=== PATIENT | female | born 1995 | race African-American/Black ===

== ENCOUNTER 2017-01-02 14:36 | Emergency (ER) | payer SELFPAY ==
[~2017-01-02] VITALS: Ht 172.7 cm; Wt 88.5 kg
[~2017-01-02 14:36] MED LIST: CIPROFLOXACIN500 M2 ORAL; CIPROFLOXACIN750 MG ORAL; IBUPROFEN600 MG ORAL; NKM; OMEPRAZOLE20 M3 ORAL; PHENERGAN25 M1 ORAL; RANITIDINE HCL150 MG ORAL; REGLAN10 M1 ORAL; ZANTAC150 MG ORAL; ZOFRAN ODT4 MG ORAL; ZOFRAN4 MG ORAL
[2017-01-02 14:39] VITALS: BP 132/85
--- NOTE | 2017-01-02 14:55 | Emergency Room Report ---
History of Present Illness General Chief Complaint: Flu Like Symptoms Source: Patient Present Illness HPI 21-year-old female presents to the emergency department complaining of 3 day history of viral symptoms consisting of body-aches, chills, generalized fatigue and cough. Patient denies fevers. She reports abrupt onset of vomiting with generalized abdominal upper abdominal pain 10/10 in severity since yesterday. Patient states she is unable to tolerate oral fluids. Patient denies blood in the vomit or stool. Patient denies constipation, diarrhea or black tarry stools. She denies recent travel or ill contacts. Denies . She denies neck pain/stiffness, recent head injury or trauma. Denies CP, Palpitations, LOC, AMS, dizziness, Changes in Vision, Sensation, paresthesias, or a sudden severe headache. Allergies: Coded Allergies: CORN (Verified Allergy, Unknown, 08/22/15) RICE (Verified Allergy, Unknown, 08/22/15) Wheat (Verified Allergy, Unknown, 08/22/15) Whole Milk (Verified Allergy, Unknown, 08/22/15) Patient History Past Medical History: see triage record Past Surgical History: none Pertinent Family History: none Last Menstrual Period: 12/15/16 Immunizations: UTD Reviewed Nursing Documentation: PMH: Agreed, PSxH: Agreed Nursing Documentation-PMH Past Medical History: No Stated History Hx Gastrointestinal Problems: Yes - gastritis Review of Systems All Other Systems: negative except mentioned in HPI Physical Exam Vital Signs Date Time Temp Pulse Resp B/P (MAP) Pulse Ox O2 Delivery O2 Flow Rate FiO2 01/02/17 14:39 98.2 78 18 132/85 98 Room Air Sp02 EP Interpretation: reviewed, normal General Appearance: alert, GCS 15, non-toxic, mild distress - vomiting Head: normocephalic, atraumatic ENT: hearing grossly normal, normal voice Neck: full range of motion Respiratory: chest non-tender, lungs clear, normal breath sounds, no respiratory distress, speaking full sentences Cardiovascular #1: regular rate, rhythm Gastrointestinal: normal bowel sounds, soft, no guarding, no rebound, tenderness - generalized epigastric ttp, no RLQ TTP. Rectal: deferred Genitourinary: normal inspection, no CVA tenderness Musculoskeletal: back normal, gait/station normal, normal range of motion, non- tender Neurologic: alert, oriented x3, responsive, motor strength/tone normal, sensory intact, speech normal Skin: normal color, no rash, warm/dry, well hydrated Lymphatic: no adenopathy Medical Decision Making PA Attestation Dr. Godoy is my supervising Physician whom patient management has been discussed with. Diagnostic Impression: Primary Impression: Cyclical vomiting syndrome Qualified Codes: G43.A1 - Cyclical vomiting, intractable Additional Impressions: Marijuana use Viral syndrome ER Course 21-year-old female presents to the emergency department complaining of 3 day history of viral symptoms consisting of body-aches, chills, generalized fatigue and cough. Patient denies fevers. She reports abrupt onset of vomiting with generalized abdominal upper abdominal pain 10/10 in severity since yesterday. Patient states she is unable to tolerate oral fluids. Patient denies blood in the vomit or stool. Patient denies constipation, diarrhea or black tarry stools. She denies recent travel or ill contacts. Denies . She denies neck pain/stiffness, recent head injury or trauma. Denies CP, Palpitations, LOC, AMS, dizziness, Changes in Vision, Sensation, paresthesias, or a sudden severe headache. Ddx considered but are not limited to GE, colitis, acute appy, SBO, Cyclical Vomiting secondary to THC, * Vital signs: pt. is afebrile, H&PE are most consistent with Cyclical vomiting induced by THC use. and viral syndrome. After antiemetic medications given in the emergency department had little relief of symptoms I question patient about marijuana use and she reports that yesterday she used some marijuana thinking it would make her feel better from her previous viral URI symptoms and she states that she began having vomiting shortly after. ORDERS: -CBC: WNL/unremarkable -CMp: WNL/ Unremarkable -Lipase: WNL -Urine Hcg: Negative -UDS; Positive for THC ED INTERVENTIONS: -1000 NS iv hydration x 2 -Zofran PO -Reglan IV - Capsacin Cream topically -Zantac PO -She was educated on THC into cyclical vomiting syndrome and was encouraged to discontinue use of marijuana. Encourage patient to continue hydration with oral fluids well at home and gave patient ED return precautions for worsening or new symptoms.. For patient to followup with her PMD in approximately 3-5 days. DISCHARGE: At this time pt. is stable for d/c to home. Will provide printed patient care instructions, and any necessary prescriptions. Care plan and follow up instructions have been discussed with the patient prior to discharge. Labs Test 01/02/17 15:20 01/02/17 17:17 White Blood Count 7.4 K/UL (4.8-10.8) Red Blood Count 4.44 M/UL (4.20-5.40) Hemoglobin 14.5 G/DL (12.0-16.0) Hematocrit 42.8 % (37.0-47.0) Mean Corpuscular Volume 96 FL (80-99) Mean Corpuscular Hemoglobin 32.8 PG (27.0-31.0) Mean Corpuscular Hemoglobin Concent 34.0 G/DL (32.0-36.0) Red Cell Distribution Width 10.7 % (11.6-14.8) Platelet Count 173 K/UL (150-450) Mean Platelet Volume 7.0 FL (6.5-10.1) Neutrophils (%) (Auto) 70.8 % (45.0-75.0) Lymphocytes (%) (Auto) 9.5 % (20.0-45.0) Monocytes (%) (Auto) 17.8 % (1.0-10.0) Eosinophils (%) (Auto) 0.0 % (0.0-3.0) Basophils (%) (Auto) 1.8 % (0.0-2.0) Sodium Level 139 MMOL/L (136-145) Potassium Level 3.5 MMOL/L (3.5-5.1) Chloride Level 102 MMOL/L (98-107) Carbon Dioxide Level 22 MMOL/L (21-32) Anion Gap 15 mmol/L (5-15) Blood Urea Nitrogen 9 mg/dL (7-18) Creatinine 0.8 MG/DL (0.55-1.30) Estimat Glomerular Filtration Rate > 60 mL/min (>60) Glucose Level 125 MG/DL (74-106) Calcium Level 9.4 MG/DL (8.5-10.1) Total Bilirubin 0.5 MG/DL (0.2-1.0) Aspartate Amino Transf (AST/SGOT) 24 U/L (15-37) Alanine Aminotransferase (ALT/SGPT) 31 U/L (12-78) Alkaline Phosphatase 57 U/L (46-116) Total Protein 7.9 G/DL (6.4-8.2) Albumin 4.6 G/DL (3.4-5.0) Globulin 3.3 g/dL Albumin/Globulin Ratio 1.4 (1.0-2.7) Lipase 58 U/L (73-393) Urine HCG, Qualitative Negative Urine Opiates Screen Negative (NEGATIVE) Urine Barbiturates Screen Negative (NEGATIVE) Phencyclidine (PCP) Screen Negative (NEGATIVE) Urine Amphetamines Screen Negative (NEGATIVE) Urine Benzodiazepines Screen Negative (NEGATIVE) Urine Cocaine Screen Negative (NEGATIVE) Urine Marijuana (THC) Screen Positive (NEGATIVE) Last Vital Signs Date Time Temp Pulse Resp B/P (MAP) Pulse Ox O2 Delivery O2 Flow Rate FiO2 01/02/17 14:39 98.2 78 18 132/85 98 Room Air Disposition: HOME, SELF-CARE Condition: Stable Scripts Ranitidine Hcl* (ZANTAC*) 150 Mg Tablet 150 MG ORAL TWICE A DAY for 7 Days, #14 TAB Prov: Madonna Chambers 01/02/17 Acetaminophen* (TYLENOL EXTRA STRENGTH*) 500 Mg Tablet 500 MG ORAL Q8H Y for Prn Headache/Temp > 101, #20 TAB 0 Refills Prov: Madonna Chambers 01/02/17 Capsaicin (CAPSAICIN) 60 Gm Cream..g. 1 APPLIC TP PRN Y for Nausea & Vomiting, #60 GM Prov: Madonna Chambers 01/02/17 Patient Instructions: Nausea and Vomiting, Adult, [id number] Additional Instructions: Discontinue the use of marijuana as this is known to cause cyclical vomiting syndrome. Take medications as directed. Follow up with a Primary Care Provider in 3-5 days, even if your symptoms have resolved. --Please review list of primary care clinics, if you do not already have a primary care provider Return sooner to ED if new symptoms occur, or current symptoms become worse. - Please note that this Emergency Department Report was dictated using [employer] technology software, occasionally this can lead to erroneous entry secondary to interpretation by the dictation equipment. Madonna Chambers Jan 02, 2017 14:55
[2017-01-02] MEDS ORDERED: Ondansetron ODT 8mg tab ORAL ONE (15:00)
[2017-01-02 15:36] LABS: BASOPHILS % (AUTO) 1.8 % (0.0-2.0); LYMPHOCYTES % (AUTO) 9.5 % (20.0-45.0); MEAN CORPUSCULAR HEMOGLOBIN 32.8 PG (27.0-31.0); MEAN CORPUSCULAR VOLUME 96 FL (80-99); MONOCYTES % (AUTO) 17.8 % (1.0-10.0); NEUTROPHILS % (AUTO) 70.8 % (45.0-75.0); PLATELET COUNT 173 K/UL (150-450); RED BLOOD COUNT 4.44 M/UL (4.20-5.40); RED CELL DISTRIBUTION WIDTH 10.7 % (11.6-14.8); WHITE BLOOD COUNT 7.4 K/UL (4.8-10.8)
[2017-01-02 15:42] LABS: ANION GAP 15 mmol/L (5-15); CALCIUM 9.4 MG/DL (8.5-10.1); CARBON DIOXIDE 22 MMOL/L (21-32); CHLORIDE 102 MMOL/L (98-107); CREATININE 0.8 MG/DL (0.55-1.30); GLOMERULAR FILTRATION RATE > 60 mL/min (>60); POTASSIUM 3.5 MMOL/L (3.5-5.1); SODIUM 139 MMOL/L (136-145)
[2017-01-02 15:48] LABS: ALANINE AMINOTRANSFERASE 31 U/L (12-78); ALBUMIN/GLOBULIN RATIO 1.4 (1.0-2.7); ASPARTATE AMINO TRANSFERASE 24 U/L (15-37); LIPASE 58 U/L (73-393); TOTAL PROTEIN 7.9 G/DL (6.4-8.2)
[2017-01-02] MEDS ORDERED: Ketorolac 30mg Inj IV ONE (16:15)
[2017-01-02] MEDS ORDERED: Metoclopramide 10mg/2ml Inj IVP ONE (16:30)
[2017-01-02] MEDS ORDERED: ZANTAC150 MG ORAL (17:52)
[2017-01-02] MEDS ORDERED: CAPSAICIN60 GM TP (17:52)
[2017-01-02] MEDS ORDERED: TYLENOL EXTRA500 MG ORAL (17:52)
[2017-01-02] MEDS ORDERED: Capsaicin 0.075% Cream TOPIC SCH (18:15)
[2017-01-02 18:18] VITALS: BP 132/85
[2017-01-03] MEDS ORDERED: NITROFURANTOIN100 M2 ORAL (21:18)
[2017-01-03] MEDS ORDERED: ZOFRAN ODT4 MG ORAL (21:28)
== END 2017-01-02 18:39 | disposition home or self-care (01) ==
LOC: EMR 14:50
DX: G43.A0 Cyclical vomiting, in migraine, not intractable (principal); F12.90 Cannabis use, unspecified, uncomplicated; B34.9 Viral infection, unspecified; Z91.018 Allergy to other foods; Z87.19 Personal history of other diseases of the digestive system
CPT/HCPCS: 36415; 80053; 80307; 81025; 83690; 85025; 96361; 96374; 96375; 99284; J1885; J2765; Q0162

== ENCOUNTER 2017-01-03 19:58 | Emergency (ER) | payer SELFPAY ==
[~2017-01-03] VITALS: Ht 175.3 cm; Wt 81.6 kg
[~2017-01-03 19:58] MED LIST changes: +CAPSAICIN60 GM TP; +TYLENOL EXTRA500 MG ORAL
--- NOTE | 2017-01-03 20:08 | Emergency Room Report ---
History of Present Illness General Chief Complaint: To Be Triaged Present Illness HPI 21-year-old female walking with continued intractable nausea and vomiting associated with abdominal pain, 09/24, patient stated that she could fill prescriptions given by PA yesterday, but nothing has helped Patient was seen here yesterday, had normal labs, and urine toxicology was positive for marijuana Patient admits to twice daily marijuana use, has multiple visits to ER for intractable pain and nausea vomiting patient denies urinary complaints, diarrhea, foreign travel, sick contacts, previous abdominal surgery Allergies: Coded Allergies: CORN (Verified Allergy, Unknown, 08/22/15) RICE (Verified Allergy, Unknown, 08/22/15) Wheat (Verified Allergy, Unknown, 08/22/15) Whole Milk (Verified Allergy, Unknown, 08/22/15) Patient History Past Medical History: none Past Surgical History: none Pertinent Family History: none Social History: Reports: smoking, drug use Now: No Immunizations: UTD Reviewed Nursing Documentation: PMH: Agreed, PSxH: Agreed Nursing Documentation-PMH Hx Gastrointestinal Problems: Yes - gastritis Review of Systems All Other Systems: negative except mentioned in HPI Physical Exam Sp02 EP Interpretation: reviewed, normal General Appearance: normal inspection, well appearing, no apparent distress, alert, GCS 15, non-toxic, other - patient dry heaving but not actually vomiting Head: normocephalic, atraumatic Eyes: bilateral eye PERRL, bilateral eye EOMI ENT: normal ENT inspection, hearing grossly normal, normal voice Neck: normal inspection, full range of motion, supple, no bony tend Respiratory: normal inspection, lungs clear, normal breath sounds, no respiratory distress, no retraction, no wheezing Cardiovascular #1: regular rate, rhythm, no edema Gastrointestinal: normal inspection, normal bowel sounds, non tender, soft, no guarding, no hernia Genitourinary: no CVA tenderness Musculoskeletal: normal inspection, back normal, normal range of motion, Marivel' s Sign negative Neurologic: normal inspection, alert, oriented x3, responsive, 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, motor strength/tone normal, speech normal Psychiatric: normal inspection, judgement/insight normal, other - Very traumatic affect, writhing on stretcher Skin: normal inspection, normal color, no rash Lymphatic: normal inspection Medical Decision Making Diagnostic Impression: Primary Impression: Intractable vomiting Qualified Codes: G43.A1 - Cyclical vomiting, intractable Additional Impressions: Marijuana abuse UTI (lower urinary tract infection) ER Course ntractable vomiting likely due to continued marijuana abuse Vital signs stable, afebrile UA significant for UTI, antibiotic prescription was given Patient is to be discharged to home. Prescriptions given are macrobid Patient is instructed to follow up with their primary care doctor within 5 days. Patient is instructed to follow up with *specialist within 3 days. Strict return precautions discussed with patient such as fever, chills, worsening/severe pain, nausea, vomiting, which may indicate severe illness. Patient verbalizes understanding and agrees with plan. Please note that this Emergency Department Report was dictated using [employer] technology software, occasionally this can lead to erroneous entry secondary to interpretation by the dictation equipment Status: improved Disposition: HOME, SELF-CARE Scripts Ondansetron Odt* (ZOFRAN ODT*) 4 Mg Tab.rapdis 4 MG ORAL Q6H Y for Nausea & Vomiting, #15 TAB 0 Refills Prov: RONEL CRAWFORD D.O. 01/03/17 Nitrofurantoin Monohyd/M-Cryst* (MACROBID 100 MG*) 100 Mg Capsule 100 MG ORAL EVERY 12 HOURS for 7 Days, #13 CAP Prov: ALBINO CAVANAUGH M.D. 01/03/17 ALBINO CAVANAUGH M.D. Jan 03, 2017 20:08
[2017-01-03 20:26] VITALS: BP 176/84
[2017-01-03 20:27] LABS: APPEARANCE,URINE CLOUDY; KETONES,URINE 3+ (NEGATIVE); LEUKOCYTE ESTERASE ,URINE 2+ (NEGATIVE); NITRITE,URINE NEGATIVE (NEGATIVE); PH,URINE 5 (4.5-8.0); PROTEIN,URINE 2+ (NEGATIVE); UROBILINOGEN,URINE NORMAL MG/DL (0.0-1.0)
[2017-01-03 20:36] LABS: BACTERIA,URINE MANY /HPF; SQUAMOUS EPITHELIAL CELL,UR MANY /LPF (NONE/OCC); WBC,URINE 30-40 /HPF (0 - 2)
[2017-01-03] MEDS ORDERED: NITROFURANTOIN100 M2 ORAL (21:18)
[2017-01-03] MEDS ORDERED: ZOFRAN ODT4 MG ORAL (21:28)
[2017-01-03 21:30] VITALS: BP 164/71
[2017-01-03 21:33] VITALS: BP 164/71
== END 2017-01-03 21:33 | disposition home or self-care (01) ==
LOC: EMR 20:20
DX: R11.2 Nausea with vomiting, unspecified (principal); F12.10 Cannabis abuse, uncomplicated; F17.200 Nicotine dependence, unspecified, uncomplicated; Z87.19 Personal history of other diseases of the digestive system
CPT/HCPCS: 81003; 87086; 96372; 99284; J2405

== ENCOUNTER 2017-01-05 11:08 | Emergency (ER) | payer OTHER ==
[~2017-01-05] VITALS: Ht 175.3 cm; Wt 81.6 kg
[~2017-01-05 11:08] MED LIST changes: +NITROFURANTOIN100 M2 ORAL
[2017-01-05] MEDS ORDERED: Haloperidol 5mg/ml Inj IM ONE (11:45)
[2017-01-05 11:56] LABS: APPEARANCE,URINE SLIGHTLY CLOUDY; KETONES,URINE 2+ (NEGATIVE); LEUKOCYTE ESTERASE ,URINE 3+ (NEGATIVE); NITRITE,URINE POSITIVE (NEGATIVE); PH,URINE 6 (4.5-8.0); PROTEIN,URINE 3+ (NEGATIVE); UROBILINOGEN,URINE 4 MG/DL (0.0-1.0)
[2017-01-05 12:01] LABS: MEAN CORPUSCULAR HEMOGLOBIN 31.9 PG (27.0-31.0); MEAN CORPUSCULAR HGB CONC 33.9 G/DL (32.0-36.0); MEAN CORPUSCULAR VOLUME 94 FL (80-99); MEAN PLATELET VOLUME 7.2 FL (6.5-10.1); PLATELET COUNT 177 K/UL (150-450); RED CELL DISTRIBUTION WIDTH 10.5 % (11.6-14.8); WHITE BLOOD COUNT 4.7 K/UL (4.8-10.8)
[2017-01-05 12:10] LABS: ANION GAP 13 mmol/L (5-15); CALCIUM 9.5 MG/DL (8.5-10.1); CARBON DIOXIDE 27 MMOL/L (21-32); CHLORIDE 102 MMOL/L (98-107); CREATININE 0.9 MG/DL (0.55-1.30); GLOMERULAR FILTRATION RATE > 60 mL/min (>60); POTASSIUM 3.1 MMOL/L (3.5-5.1); SODIUM 141 MMOL/L (136-145)
[2017-01-05 12:12] LABS: ALANINE AMINOTRANSFERASE 44 U/L (12-78); ALBUMIN/GLOBULIN RATIO 1.2 (1.0-2.7); ASPARTATE AMINO TRANSFERASE 33 U/L (15-37); LIPASE 79 U/L (73-393); TOTAL PROTEIN 8.4 G/DL (6.4-8.2)
[2017-01-05 12:13] LABS: PROTHROMBIN TIME 10.8 SEC (9.30-11.50)
[2017-01-05 12:14] LABS: ICTOTEST NEGATIVE
[2017-01-05 12:15] LABS: BACTERIA,URINE MODERATE /HPF; MUCUS,URINE FEW /LPF (NONE/OCC); SQUAMOUS EPITHELIAL CELL,UR MODERATE /LPF (NONE/OCC)
[2017-01-05 12:26] LABS: BAND NEUTROPHILS % (MANUAL) 0 % (0-8); BASOPHILS % (MANUAL) 0 % (0-2); EOSINOPHILS % (MANUAL) 0 % (0-3); LYMPHOCYTES % (MANUAL) 36 % (20-45); NEUTROPHILS % (MANUAL) 45 % (45-75); PLATELET ESTIMATE ADEQUATE; TOTAL CELLS COUNTED 100
[2017-01-05 12:27] LABS: PLATELET MORPHOLOGY NORMAL
[2017-01-05] MEDS ORDERED: cefTRIAXone 1 GM in NS 55 ML IVPB ONE (12:30)
[2017-01-05 13:54] VITALS: BP 105/63
[2017-01-05] MEDS ORDERED: KEFLEX500 MG ORAL (13:54)
[2017-01-05] MEDS ORDERED: ZOFRAN4 MG ORAL (13:54)
[2017-01-05 14:08] VITALS: BP 105/63
--- NOTE | 2017-01-07 08:38 | Emergency Room Report ---
History of Present Illness General Chief Complaint: Vomiting Source: Patient Present Illness HPI Patient is a 21-year-old female who presented after increased epigastric pain as well as vomiting. Patient gradual onset of symptoms. Patient multiple prior visits for similar type symptoms. Patient prior history of marijuana- induced hyperemesis. She said prior history of gastritis. The patient stated that she had been vomiting multiple times. She has some blood-streaked emesis. She reports having some epigastric burning sensation. She denies any fever. She denies any dysuria.She denies being Allergies: Coded Allergies: CORN (Verified Allergy, Unknown, 08/22/15) RICE (Verified Allergy, Unknown, 08/22/15) Wheat (Verified Allergy, Unknown, 08/22/15) Whole Milk (Verified Allergy, Unknown, 08/22/15) Patient History Past Medical History: see triage record Last Menstrual Period: 11/2016 Now: No : 0 Para: 0 Reviewed Nursing Documentation: PMH: Agreed, PSxH: Agreed Nursing Documentation-PMH Past Medical History: No History, Except For Hx Gastrointestinal Problems: Yes - gastritis Review of Systems All Other Systems: negative except mentioned in HPI Physical Exam Vital Signs Date Time Temp Pulse Resp B/P (MAP) Pulse Ox O2 Delivery O2 Flow Rate FiO2 01/05/17 11:13 97.9 50 16 146/92 99 Room Air Sp02 EP Interpretation: reviewed, normal General Appearance: normal inspection, well appearing, no apparent distress, alert, GCS 15 Head: atraumatic ENT: normal ENT inspection, hearing grossly normal, normal voice Neck: normal inspection, full range of motion, supple, no bony tend Respiratory: normal inspection, lungs clear, normal breath sounds, no respiratory distress, no retraction, no wheezing Cardiovascular #1: regular rate, rhythm, no edema Gastrointestinal: normal inspection, normal bowel sounds, non tender, soft, no guarding, no hernia Genitourinary: no CVA tenderness Musculoskeletal: normal inspection, back normal, normal range of motion Neurologic: normal inspection, alert, oriented x3, responsive, 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 Gastritis ER Course Patient presented for abdominal pain. Differential diagnoses included ischemic bowel, appendicitis, perforated viscus, abdominal aortic aneurysm, inferior myocardial infarction, viral gastroenteritis Because of complexity of patient's case laboratory testing and imaging studies were ordered. Laboratory studies showed normal hemoglobin. The patient was given IV fluids as well as IM Haldol for nausea. The patient was given IV antibiotics to urinary infection. The patient's symptoms are more consistent with gastritis as well as hyperemesis syndrome . Patient given prescriptions for oral antibiotics and Zofran. The patient was advised to discontinue smoking marijuana . The patient is advised to follow up with primary care doctor in 1- 2 days. Patient is advised to return if any worsening condition or if any changes in status that are concerning. Labs Test 01/05/17 11:32 01/05/17 11:40 Urine Color Yellow Urine Appearance Slightly cloudy Urine pH 6 (4.5-8.0) Urine Specific [place] 1.020 (1.005-1.035) Urine Protein 3+ (NEGATIVE) Urine Glucose (UA) Negative (NEGATIVE) Urine Ketones 2+ (NEGATIVE) Urine Occult Blood 3+ (NEGATIVE) Urine Nitrite Positive (NEGATIVE) Urine Bilirubin 1+ (NEGATIVE) Urine Ictotest Negative Urine Urobilinogen 4 MG/DL (0.0-1.0) Urine Leukocyte Esterase 3+ (NEGATIVE) Urine RBC 2-4 /HPF (0 - 2) Urine WBC 10-15 /HPF (0 - 2) Urine Squamous Epithelial Cells Moderate /LPF (NONE/OCC) Urine Bacteria Moderate /HPF (NONE) Urine Mucus Few /LPF (NONE/OCC) Urine HCG, Qualitative Negative White Blood Count 4.7 K/UL (4.8-10.8) Red Blood Count 4.50 M/UL (4.20-5.40) Hemoglobin 14.4 G/DL (12.0-16.0) Hematocrit 42.4 % (37.0-47.0) Mean Corpuscular Volume 94 FL (80-99) Mean Corpuscular Hemoglobin 31.9 PG (27.0-31.0) Mean Corpuscular Hemoglobin Concent 33.9 G/DL (32.0-36.0) Red Cell Distribution Width 10.5 % (11.6-14.8) Platelet Count 177 K/UL (150-450) Mean Platelet Volume 7.2 FL (6.5-10.1) Neutrophils (%) (Auto) % (45.0-75.0) Lymphocytes (%) (Auto) % (20.0-45.0) Monocytes (%) (Auto) % (1.0-10.0) Eosinophils (%) (Auto) % (0.0-3.0) Basophils (%) (Auto) % (0.0-2.0) Differential Total Cells Counted 100 Neutrophils % (Manual) 45 % (45-75) Lymphocytes % (Manual) 36 % (20-45) Monocytes % (Manual) 19 % (1-10) Eosinophils % (Manual) 0 % (0-3) Basophils % (Manual) 0 % (0-2) Band Neutrophils 0 % (0-8) Platelet Estimate Adequate Platelet Morphology Normal Red Blood Cell Morphology Normal Prothrombin Time 10.8 SEC (9.30-11.50) Prothromb Time International Ratio 1.0 (0.9-1.1) Activated Partial Thromboplast Time 28 SEC (23-33) Sodium Level 141 MMOL/L (136-145) Potassium Level 3.1 MMOL/L (3.5-5.1) Chloride Level 102 MMOL/L (98-107) Carbon Dioxide Level 27 MMOL/L (21-32) Anion Gap 13 mmol/L (5-15) Blood Urea Nitrogen 8 mg/dL (7-18) Creatinine 0.9 MG/DL (0.55-1.30) Estimat Glomerular Filtration Rate > 60 mL/min (>60) Glucose Level 101 MG/DL (74-106) Calcium Level 9.5 MG/DL (8.5-10.1) Total Bilirubin 0.8 MG/DL (0.2-1.0) Aspartate Amino Transf (AST/SGOT) 33 U/L (15-37) Alanine Aminotransferase (ALT/SGPT) 44 U/L (12-78) Alkaline Phosphatase 52 U/L (46-116) Total Protein 8.4 G/DL (6.4-8.2) Albumin 4.5 G/DL (3.4-5.0) Globulin 3.9 g/dL Albumin/Globulin Ratio 1.2 (1.0-2.7) Lipase 79 U/L (73-393) Last Vital Signs Date Time Temp Pulse Resp B/P (MAP) Pulse Ox O2 Delivery O2 Flow Rate FiO2 01/05/17 14:08 98.1 61 18 105/63 97 Room Air Status: improved Disposition: HOME, SELF-CARE Condition: Stable Scripts Cephalexin* (KEFLEX*) 500 Mg Capsule 500 MG ORAL EVERY 6 HOURS, #28 CAP 0 Refills Prov: Magdaleno Lam 01/05/17 Ondansetron (Zofran) 4 Mg Tablet 4 MG ORAL Q6H Y for Nausea & Vomiting, #20 TAB 0 Refills Prov: Magdaleno Lam 01/05/17 Patient Instructions: Nausea and Vomiting, Adult Additional Instructions: Stop smoking marijuana. This makes you vomit. Magdaleno Lam Jan 07, 2017 08:38
--- NOTE | 2017-01-13 17:25 | Cardiology Report ---
APPROVED REPORT EKG Measurement Heart [id number] Sinus bradycardia Otherwise normal ECG
== END 2017-01-05 14:11 | disposition home or self-care (01) ==
LOC: EMR 11:50
DX: N39.0 Urinary tract infection, site not specified (principal); K29.70 Gastritis, unspecified, without bleeding; R11.10 Vomiting, unspecified; F12.10 Cannabis abuse, uncomplicated
CPT/HCPCS: 36415; 80053; 81003; 81025; 83690; 85007; 85025; 85610; 85730; 87086; 93005; 96361; 96365; 96372; 99284; J0696; J1630; J8499

== ENCOUNTER 2018-02-21 16:02 | Emergency (ER) | payer MEDICAID, OTHER ==
[~2018-02-21] VITALS: Ht 177.8 cm; Wt 90.7 kg
[~2018-02-21 16:02] MED LIST changes: +KEFLEX500 MG ORAL
--- NOTE | 2018-02-21 16:41 | NUR ---
ED Nurse Note: Pt came into the Er for nausea and vomiting x5 days. Started diarrhea today. A + O x4. Ambulatory. Complaining of 9/10 abdominal pain radiating to the sternum. Skin warm to touch.
[2018-02-21 16:47] VITALS: BP 143/93
--- NOTE | 2018-02-21 16:59 | Emergency Room Report ---
History of Present Illness General Chief Complaint: Nausea, Vomiting, and Diarrhea Source: Patient, Medical Record Present Illness HPI Patient is a 22-year-old female who presented after increased abdominal pain. Patient had prior history of marijuana hyperemesis syndrome. Patient reports to continued marijuana use. She states she stopped several days ago after emesis began. Patient has multiple ER visits for similar symptoms in the past. Patient denies any dysuria. She reports having taken her previously prescribed medications without any improvement. Patient had not use capsaicin. She had previously been prescribed this. Patient had no prior surgical history. She denies any fever. She denies any leg pain or swelling or dysuria.Patient denies being Allergies: Coded Allergies: CORN (Verified Allergy, Unknown, 08/22/15) RICE (Verified Allergy, Unknown, 08/22/15) Wheat (Verified Allergy, Unknown, 08/22/15) Whole Milk (Verified Allergy, Unknown, 08/22/15) Patient History Past Medical History: see triage record Now: No Reviewed Nursing Documentation: PMH: Agreed; PSxH: Agreed Nursing Documentation-PMH Hx Gastrointestinal Problems: Yes - gastritis Review of Systems All Other Systems: negative except mentioned in HPI Physical Exam Vital Signs Date Time Temp Pulse Resp B/P (MAP) Pulse Ox O2 Delivery O2 Flow Rate FiO2 02/21/18 16:36 79 20 151/100 98 Room Air 02/21/18 16:47 100.5 Sp02 EP Interpretation: reviewed, normal General Appearance: normal inspection, well appearing, no apparent distress, alert, GCS 15, non-toxic Head: atraumatic ENT: normal ENT inspection, hearing grossly normal, normal voice Neck: normal inspection, full range of motion, supple, no bony tend Respiratory: normal inspection, lungs clear, normal breath sounds, no respiratory distress, no retraction, no wheezing Cardiovascular #1: regular rate, rhythm, no edema Gastrointestinal: normal inspection, normal bowel sounds, non tender, soft, no guarding, no hernia Genitourinary: no CVA tenderness Musculoskeletal: normal inspection, back normal, normal range of motion Neurologic: normal inspection, alert, oriented x3, responsive, speech normal Psychiatric: normal inspection, judgement/insight normal, mood/affect normal Skin: normal inspection, normal color, no rash Medical Decision Making Diagnostic Impression: Primary Impression: UTI (lower urinary tract infection) Additional Impressions: Abdominal pain Cannabis hyperemesis syndrome concurrent with and due to cannabis abuse ER Course Patient presented for abdominal pain. Differential diagnoses included ischemic bowel, appendicitis, perforated viscus, abdominal aortic aneurysm, inferior myocardial infarction, viral gastroenteritis. because of complexity of patient' s case laboratory testing and imaging studies were ordered. Patient appears to have evidence of chronic marijuana abuse and vomiting is likely related to this. Patient was noted to have some evidence of urinary tract infection. She was given prescription for oral antibiotics. Patient does not appear to be septic.Patient was again advised marijuana cessation. She was advised to return if she was unable to keep fluids down or other concerns.. Labs Test 02/21/18 17:10 02/21/18 18:52 White Blood Count 10.5 K/UL (4.8-10.8) Red Blood Count 4.90 M/UL (4.20-5.40) Hemoglobin 16.0 G/DL (12.0-16.0) Hematocrit 44.7 % (37.0-47.0) Mean Corpuscular Volume 91 FL (80-99) Mean Corpuscular Hemoglobin 32.6 PG (27.0-31.0) Mean Corpuscular Hemoglobin Concent 35.8 G/DL (32.0-36.0) Red Cell Distribution Width 10.4 % (11.6-14.8) Platelet Count 299 K/UL (150-450) Mean Platelet Volume 6.5 FL (6.5-10.1) Neutrophils (%) (Auto) 67.2 % (45.0-75.0) Lymphocytes (%) (Auto) 17.8 % (20.0-45.0) Monocytes (%) (Auto) 14.0 % (1.0-10.0) Eosinophils (%) (Auto) 0.1 % (0.0-3.0) Basophils (%) (Auto) 0.9 % (0.0-2.0) Sodium Level 138 MMOL/L (136-145) Potassium Level 3.4 MMOL/L (3.5-5.1) Chloride Level 98 MMOL/L (98-107) Carbon Dioxide Level 31 MMOL/L (21-32) Anion Gap 9 mmol/L (5-15) Blood Urea Nitrogen 13 mg/dL (7-18) Creatinine 1.0 MG/DL (0.55-1.30) Estimat Glomerular Filtration Rate > 60 mL/min (>60) Glucose Level 108 MG/DL (74-106) Calcium Level 10.5 MG/DL (8.5-10.1) Total Bilirubin 1.2 MG/DL (0.2-1.0) Direct Bilirubin 0.3 MG/DL (0.0-0.3) Aspartate Amino Transf (AST/SGOT) 23 U/L (15-37) Alanine Aminotransferase (ALT/SGPT) 46 U/L (12-78) Alkaline Phosphatase 81 U/L (46-116) Total Protein 8.6 G/DL (6.4-8.2) Albumin 4.6 G/DL (3.4-5.0) Globulin 4.0 g/dL Albumin/Globulin Ratio 1.1 (1.0-2.7) Lipase 84 U/L (73-393) Urine Color Jannet Urine Appearance Turbid Urine pH 7 (4.5-8.0) Urine Specific [place] 1.020 (1.005-1.035) Urine Protein 2+ (NEGATIVE) Urine Glucose (UA) Negative (NEGATIVE) Urine Ketones 1+ (NEGATIVE) Urine Blood 5+ (NEGATIVE) Urine Nitrite Negative (NEGATIVE) Urine Bilirubin Negative (NEGATIVE) Urine Ictotest Negative (NEGATIVE) Urine Urobilinogen Normal MG/DL (0.0-1.0) Urine Leukocyte Esterase 3+ (NEGATIVE) Urine RBC 10-15 /HPF (0 - 2) Urine WBC 20-30 /HPF (0 - 2) Urine Squamous Epithelial Cells Many /LPF (NONE/OCC) Urine Bacteria Many /HPF (NONE) Urine HCG, Qualitative Negative (NEGATIVE) Last Vital Signs Date Time Temp Pulse Resp B/P (MAP) Pulse Ox O2 Delivery O2 Flow Rate FiO2 02/21/18 16:47 100.5 66 12 143/93 100 Room Air Status: improved Disposition: HOME, SELF-CARE Condition: Stable Scripts Ondansetron Odt* (ZOFRAN ODT*) 4 Mg Tab.rapdis 4 MG BC EVERY 6 HOURS PRN for Nausea & Vomiting, #10 TAB 0 Refills Prov: Magdaleno Lam MD 02/21/18 Famotidine (PEPCID AC) 20 Mg Tablet 20 MG PO DAILY, #20 TAB Prov: Magdaleno Lam MD 02/21/18 Cephalexin* (KEFLEX*) 500 Mg Capsule 500 MG ORAL EVERY 6 HOURS, #40 CAP Prov: Magdaleno Lam MD 02/21/18 Referrals: NOT CHOSEN [facility]/,REFERRING (PCP) Magdaleno Lam MD Feb 21, 2018 16:59
[2018-02-21] MEDS ORDERED: Haloperidol Lactate 5 MG in D5W 55 ML IVPB ONE (17:00)
[2018-02-21 17:32] LABS: BASOPHILS % (AUTO) 0.9 % (0.0-2.0); EOSINOPHILS % (AUTO) 0.1 % (0.0-3.0); HEMATOCRIT 44.7 % (37.0-47.0); LYMPHOCYTES % (AUTO) 17.8 % (20.0-45.0); MEAN CORPUSCULAR VOLUME 91 FL (80-99); NEUTROPHILS % (AUTO) 67.2 % (45.0-75.0); PLATELET COUNT 299 K/UL (150-450); RED CELL DISTRIBUTION WIDTH 10.4 % (11.6-14.8); WHITE BLOOD COUNT 10.5 K/UL (4.8-10.8)
[2018-02-21 17:48] LABS: ANION GAP 9 mmol/L (5-15); BLOOD UREA NITROGEN 13 mg/dL (7-18); CALCIUM 10.5 MG/DL (8.5-10.1); CARBON DIOXIDE 31 MMOL/L (21-32); CHLORIDE 98 MMOL/L (98-107); POTASSIUM 3.4 MMOL/L (3.5-5.1); SODIUM 138 MMOL/L (136-145)
[2018-02-21 17:58] LABS: ALANINE AMINOTRANSFERASE 46 U/L (12-78); ALBUMIN 4.6 G/DL (3.4-5.0); ALBUMIN/GLOBULIN RATIO 1.1 (1.0-2.7); ALKALINE PHOSPHATASE 81 U/L (46-116); ASPARTATE AMINO TRANSFERASE 23 U/L (15-37); BILIRUBIN,TOTAL 1.2 MG/DL (0.2-1.0)
[2018-02-21 18:27] LABS: BILIRUBIN,DIRECT 0.3 MG/DL (0.0-0.3)
--- NOTE | 2018-02-21 18:53 | NUR ---
ED Nurse Note: Urine has been collected and sent to lab.
--- NOTE | 2018-02-21 18:54 | NUR ---
ED Nurse Note: Urine has been collected and sent to lab. Waiting results.
[2018-02-21 19:00] LABS: APPEARANCE,URINE TURBID; BILIRUBIN, URINE NEGATIVE (NEGATIVE); COLOR,URINE AMBER; GLUCOSE, URINE (UA) NEGATIVE (NEGATIVE); KETONES,URINE 1+ (NEGATIVE); LEUKOCYTE ESTERASE ,URINE 3+ (NEGATIVE); NITRITE,URINE NEGATIVE (NEGATIVE); PH,URINE 7 (4.5-8.0); PROTEIN,URINE 2+ (NEGATIVE); UROBILINOGEN,URINE NORMAL MG/DL (0.0-1.0)
--- NOTE | 2018-02-21 19:19 | NUR ---
HAND-OFF: Report given to THOR Ernst.
--- NOTE | 2018-02-21 19:20 | NUR ---
ED Nurse Note: Patient lying in bed with boyfriend at bedside. Patient expressed want to leave unit. no signs of acute distress.
[2018-02-21] MEDS ORDERED: CEPHALEXIN500 MG ORAL (19:21)
[2018-02-21] MEDS ORDERED: ONDANSETRON ODT4 MG BC (19:22)
[2018-02-21] MEDS ORDERED: PEPCID AC20 M2 PO (19:22)
[2018-02-21] MEDS ORDERED: Cephalexin 500mg cap ORAL ONE (19:30)
--- NOTE | 2018-02-21 19:40 | NUR ---
ED Nurse Note: Patient discharged in stable condition, ambulatory with steady gait, IV removed, ID band removed, no complaints of any discomfort. Patient verbalized understanding of discharge instructions. Accompanied by boyfriend upon departure.
[2018-02-21 19:42] VITALS: BP 122/86
== END 2018-02-21 19:43 | disposition home or self-care (01) ==
LOC: EMR 16:49
DX: N39.0 Urinary tract infection, site not specified (principal); R10.9 Unspecified abdominal pain; F12.188 Cannabis abuse with other cannabis-induced disorder; R11.10 Vomiting, unspecified; Z91.011 Allergy to milk products; Z91.018 Allergy to other foods
CPT/HCPCS: 36415; 80053; 81003; 81025; 82248; 83690; 85025; 87086; 96374; 99284; J1630